=== PATIENT | female | born 1975 ===

== ENCOUNTER 2022-07-18 12:28 | Inpatient (IN) | payer OTHER ==
[~2022-07-18] VITALS: Ht 154.9 cm; Wt 78.0 kg
[2022-07-18] VITALS (17 sets, daily range): BP systolic 99–146; BP diastolic 58–86
--- NOTE | 2022-07-18 16:15 | NUR ---
ARRIVAL TO UNIT VIA EMS FROM [facility] PT. ALERT AND ORIENTED UPON ARRIVAL, PINK IN COLOR. KUSSMAUL RESPIRATIONS NOTED UPON ARRIVAL. PT. SPO2 100%, HR 130S, BP WNL. PT. ABLE TO SPEAK IN SHORT SENTENCES. DENIES PAIN AT THIS TIME. DENIES ANY N/V. ARRIVES ON NS AT 150ML/HR AND INSULIN GTT AT 6U/HR. BG CHECKED, INSULIN TITRATED DOWN TO 3U/HR AT THIS TIME, AWAITING ADDITIONAL FLUID ORDERS FROM PROVIDER. PT. HAS BILAT 20G IVS TO ACS. PT. HAS POLLARD THAT WAS PLACED AT [facility]. PT. C/O DISCOMFORT WITH POLLARD CATHETER, PLANS FOR REMOVAL ONCE ASSESSED BY PROVIDER. PT. ABLE TO UREÑA. MOTTLING NOTED TO KNEES AND HANDS. CALL TO PHYSICIAN FOR ORDERS.
--- NOTE | 2022-07-18 16:30 | NUR ---
[employer] SALES ENGINEER AT BEDSIDE TO ASSESS, ADDITIONAL ORDERS OBTAINED.
--- NOTE | 2022-07-18 17:00 | NUR ---
POLLARD CATHETER DCD AT THIS TIME. PER. HERRON RECREATIONAL THERAPY TECHNICIAN ORDERS D5 1/2 NS INTIATED.
--- NOTE | 2022-07-18 17:13 | NUR ---
PT ASSISTED UP TO BEDSIDE COMMODE TO VOID. TOLERATED WELL WITH STAND BY ASSIST.
[2022-07-18 17:34] LABS: Magnesium, Blood 2.1 mg/dL (1.6-2.4)
[2022-07-18 17:36] LABS: Bun/Creatinine Ratio 15.9 (12.0-20.0); Calcium, Blood 6.9 mg/dL (8.5-10.1); Creatinine, Blood 0.82 mg/dL (0.40-1.00); Potassium, Blood 4.5 mmol/L (3.5-5.5)
[2022-07-18 18:37] LABS: Base Excess Venous -24.8 mmol/L; Bicarbonate Venous 8.3 mmol/L (24.0-30.0); PCO2 Venous 21.9 mmHg (38-42); pH Blood Venous 7.04 (7.34-7.37)
--- NOTE | 2022-07-18 18:47 | NUR ---
SHIFT SUMMARY PT. REMAINS ALERT AND ORIENTED, REPORTS "FEELING MUCH BETTER" HOWEVER CONTINUES WITH TACHYPNEA AND TACHYCARDIA. PT. UP FREQUENTLY TO VOID SMALL AMOUNTS. PT CONTINUES ON INSULIN, TITRATED TO 5U/HR AND D5 1/2NS AT 200 ML/HR. PT. RESTING COMFORTABLY IN BED. CALL LIGHT IN REACH.
--- NOTE | 2022-07-18 20:55 | NUR ---
ASSUMED CARE PT IS A&O X4. RECEIVED PT FROM LUCY CANNON AROUND [id number]. NO C/O CP, SOB, OR NAUSEA. RR IN THE HIGH 20-30'S; SPO2 >92% ON RA; HR 90-100'S; MAP <65. NO C/O CP, SOB, OR NAUSEA. PT IS DROWSY, BUT ABLE TO HOLD CONVERSATION WITHOUT FALLING ASLEEP. PT IS CURRENTLY ON INSULIN GTT AND D5 1/2NS; LR BOLUS INFUSING AT THIS TIME PER ORDER. PUREWICK IN PLACE. WILL CONTINUE TO MONITOR.
[2022-07-18 21:43] LABS: Calcium, Blood 7.3 mg/dL (8.5-10.1); Creatinine, Blood 0.73 mg/dL (0.40-1.00); Potassium, Blood 4.2 mmol/L (3.5-5.5)
[2022-07-19] VITALS (21 sets, daily range): BP systolic 93–147; BP diastolic 57–95
[2022-07-19 01:46] LABS: Bun/Creatinine Ratio 12.1 (12.0-20.0); Calcium, Blood 6.7 mg/dL (8.5-10.1); Creatinine, Blood 0.74 mg/dL (0.40-1.00); Potassium, Blood 3.2 mmol/L (3.5-5.5)
[2022-07-19 05:17] LABS: BASOPHILS ABSOLUTE AUTO 0.02 K/mm3 (0.00-0.23); BASOPHILS PERCENT AUTO 0 % (0-2); EOSINOPHILS PERCENT AUTO 0 % (0-6); Hemoglobin 11.9 g/dL (11.5-16.0); IMMATURE GRAN ABSOLUTE AUTO 0.07 K/mm3 (0.00-0.10); IMMATURE GRAN PERCENT AUTO 1 % (0-1); LYMPHOCYTES PERCENT AUTO 8 % (21-46); MONOCYTES ABSOLUTE AUTO 0.74 K/mm3 (0.16-1.47); MONOCYTES PERCENT AUTO 6 % (4-13); Mean Corpuscular Volume 94 fL (80-100); Mean Platelet Volume 9.8 fL (9.1-12.4); NEUTROPHILS ABSOLUTE AUTO 10.02 K/mm3 (1.96-9.15); NEUTROPHILS PERCENT AUTO 85 % (41-73); Platelet Count 237 K/mm3 (150-400); RDW Coefficient Variation 11.6 % (11.7-14.2); Red Blood Cell Count 3.61 M/mm3 (3.80-5.20); White Blood Cell Count 11.85 K/mm3 (4.00-11.30)
[2022-07-19 05:47] LABS: Albumin, Blood 2.7 g/dL (3.4-5.0); Bilirubin, Total 0.4 mg/dL (0.1-1.0); Bun/Creatinine Ratio 10.4 (12.0-20.0); Creatinine, Blood 0.77 mg/dL (0.40-1.00); Globulin, Blood 2.7 g/dL (2.2-4.0); Magnesium, Blood 1.6 mg/dL (1.6-2.4); Potassium, Blood 3.3 mmol/L (3.5-5.5); Total Protein, Blood 5.4 g/dL (6.4-8.2)
--- NOTE | 2022-07-19 05:56 | NUR ---
SHIFT SUMMARY PT IS A&O X4. SPO2 >92% ON RA. RR HAS DECREASED SINCE INITIALLY ASSUMPTION OF CARE. PT STATES SHE "FEELS A LOT BETTER, BUT STILL PRETTY WIPED OUT". PT RESTED QUIETLY T/O NIGHT. NO C/O CP, SOB, OR NAUSEA. MAP <65. PUREWICK IN PLACE. FLUIDS RUNNING PER ORDER (SEE FLOWSHEET). NO OTHER EVENTS EXCEPT THOSE MENTIONED IN PREVIOUS NOTES.
--- NOTE | 2022-07-19 06:32 | NUR ---
UPDATE PT HAS REFUSED SIDE TO SIDE PILLOW TUCKING AND STATES SHE CAN REPOSITION SELF. STATES "I CAN WIGGLE A LTITLE BIT MYSELF".
--- NOTE | 2022-07-19 07:24 | NUR ---
Assumed care. Report received from magalys CANNON. Pt resting in bed, on RA. Pt alert and oriented. Insulin infusing at 2.5 units/hr, NS infusing at 200 ml/hr, NS TKO. No acute needs at time of report. VS stable. Continue to monitor.
[2022-07-19 09:48] LABS: Bun/Creatinine Ratio 10.2 (12.0-20.0); Calcium, Blood 6.8 mg/dL (8.5-10.1); Creatinine, Blood 0.69 mg/dL (0.40-1.00); Potassium, Blood 2.9 mmol/L (3.5-5.5)
[2022-07-19 14:30] LABS: Bun/Creatinine Ratio 8.2 (12.0-20.0); Calcium, Blood 7.1 mg/dL (8.5-10.1); Creatinine, Blood 0.73 mg/dL (0.40-1.00); Potassium, Blood 2.9 mmol/L (3.5-5.5)
[2022-07-19 18:38] LABS: Bun/Creatinine Ratio 7.3 (12.0-20.0); Creatinine, Blood 0.69 mg/dL (0.40-1.00); Potassium, Blood 5.7 mmol/L (3.5-5.5)
--- NOTE | 2022-07-19 20:03 | NUR ---
ASSUMED CARE PT IS A&O X4; SPO2 >92% ON RA; MAP <65; NSR. NO C/O CP, SOB, OR NAUSEA. PT IS CHOOSING TO EAT CRACKERS AND CHEESE INSTEAD OF HER MEAL D/T HER FEELING LIKE SHE MIGHT BECOME NAUSEOUS IF SHE EATS DINNER TRAY. INSULIN GTT DC'D AND PT STARTED ON SUBQ INSULIN PER ORDER. PT STATES SHE FEELS "BETTER, BUT STILL DROWSY". WILL CONTINUE TO MONITOR.
[2022-07-20] VITALS: BP 137/84
[2022-07-20 02:00] VITALS: BP 150/93
--- NOTE | 2022-07-20 03:06 | NUR ---
TRANSFER PT TRANSFERRED TO ROOM 337 W/ NO TELE PER DR. GUTIERREZ. NO ISSUES.
--- NOTE | 2022-07-20 04:25 | NUR ---
ADMISSION NOTE REPORT RECEIVED FROM GERMAINE MELENDEZ RN-ICU. PATIENT TRANSFERED TO FLOOR IN W/C, FROM WHICH SHE INDEPENDENTLY AMBULATED TO BED WITH A STEADY GAIT. A&OX4. PATIENT EFFECTIVELY COMMUNICATES NEEDS. NO ACUTE CONCERNS. PATIENT ORIENTED TO ROOM AND CALL LIGHT. BED LOW AND LOCKED. SKIN ASSESSMENT PERFORMED WITH SHELL MAGANA RN. NO ABNORMALITIES OBSERVED. PATIENT'S SKIN IS INTACT AND IN GOOD REPAIR.
--- NOTE | 2022-07-20 04:56 | NUR ---
BOILER FIREMAN SUMMARY NO ACUTE EVENTS THIS SHIFT. A&OX4. PATIENT EFFECTIVELY COMMUNICATES NEEDS. VSS. RR EVEN AND UNLABORED ON RA. NO REPORTS OF PAIN. PATIENT INDEPENDENT IN ROOM AND SHOWERED SHORTLY AFTER ARRIVAL TO FLOOR. BED LOW AND LOCKED. CALL LIGHT WITHIN REACH. THIS RN WILL CONTINUE TO MONITOR.
[2022-07-20 05:06] VITALS: BP 132/88
[2022-07-20 07:13] LABS: Albumin, Blood 2.7 g/dL (3.4-5.0); Anion Gap 11 mmol/L (6-16); Blood Urea Nitrogen 5 mg/dL (8-24); Bun/Creatinine Ratio 7.7 (12.0-20.0); CO2, Blood 15 mmol/L (21-32); Calcium, Blood 7.7 mg/dL (8.5-10.1); Chloride, Blood 114 mmol/L (98-108); Creatinine, Blood 0.65 mg/dL (0.40-1.00); Glomerular Filtration Rate 111 (60-); Glucose, Blood 287 mg/dL (70-99); Phosphorus, Blood 0.6 mg/dL (2.5-4.9); Potassium, Blood 3.3 mmol/L (3.5-5.5); Sodium, Blood 140 mmol/L (136-145)
[2022-07-20 07:43] LABS: BASOPHILS ABSOLUTE AUTO 0.02 K/mm3 (0.00-0.23); BASOPHILS PERCENT AUTO 0 % (0-2); EOSINOPHILS ABSOLUTE AUTO 0.04 K/mm3 (0.00-0.68); EOSINOPHILS PERCENT AUTO 1 % (0-6); Hematocrit 34.7 % (33.0-51.0); Hemoglobin 12.6 g/dL (11.5-16.0); IMMATURE GRAN ABSOLUTE AUTO 0.04 K/mm3 (0.00-0.10); IMMATURE GRAN PERCENT AUTO 1 % (0-1); LYMPHOCYTES ABSOLUTE AUTO 1.27 K/mm3 (0.84-5.20); LYMPHOCYTES PERCENT AUTO 18 % (21-46); MONOCYTES PERCENT AUTO 7 % (4-13); Mean Corpuscular HGB 33.2 pg (26.0-34.0); Mean Corpuscular HGB Conc 36.3 g/dL (31.5-36.5); Mean Corpuscular Volume 92 fL (80-100); NEUTROPHILS ABSOLUTE AUTO 5.24 K/mm3 (1.96-9.15); NEUTROPHILS PERCENT AUTO 74 % (41-73); RDW Standard Deviation 40.5 fL (35.1-46.3); Red Blood Cell Count 3.79 M/mm3 (3.80-5.20); White Blood Cell Count 7.11 K/mm3 (4.00-11.30)
[2022-07-20 07:47] VITALS: BP 147/87
[2022-07-20 13:34] LABS: Bun/Creatinine Ratio 6.8 (12.0-20.0); Calcium, Blood 8.1 mg/dL (8.5-10.1); Creatinine, Blood 0.59 mg/dL (0.40-1.00); Potassium, Blood 3.4 mmol/L (3.5-5.5)
[2022-07-20 16:01] VITALS: BP 134/98
--- NOTE | 2022-07-20 16:40 | NUR ---
PATIENT IS ALERT AND ORIENTED AND COOPERATIVE WITH CARE. INDEPENDENT IN THE ROOM. CORRECTING HYPOPHOSPHATEMIA CORRECTED WITH IVF PER ORDERS. NO COMPLAINTS BY PATIENT. ON RA. WILL CONTINUE TO MONITOR
[2022-07-20 19:44] VITALS: BP 137/93
[2022-07-21 04:36] VITALS: BP 143/94
[2022-07-21 06:03] LABS: Bun/Creatinine Ratio 3.7 (12.0-20.0); Calcium, Blood 8.2 mg/dL (8.5-10.1); Creatinine, Blood 0.54 mg/dL (0.40-1.00); Potassium, Blood 2.6 mmol/L (3.5-5.5)
--- NOTE | 2022-07-21 06:47 | NUR ---
Shift Summary [facility] labs showed a decrease in potassium from 3.4 to 2.6. ordered IV and PO potassium, awaiting IV potassium from pharmacy. No c/o of pain or nausea t/o the night.
[2022-07-21 07:31] VITALS: BP 147/101
[2022-07-21 07:53] LABS: Glucose, Blood 65 mg/dL (70-99)
[2022-07-21 07:56] LABS: Glucose, Blood 65 mg/dL (70-99)
[2022-07-21 09:09] LABS: Glucose, Blood 148 mg/dL (70-99)
[2022-07-21 13:59] LABS: Bun/Creatinine Ratio 7.4 (12.0-20.0); Calcium, Blood 8.1 mg/dL (8.5-10.1); Creatinine, Blood 0.54 mg/dL (0.40-1.00); Potassium, Blood 3.6 mmol/L (3.5-5.5)
[2022-07-21] MEDS ORDERED: SEMGLEE (Y100 UNIT/2 SC (15:05)
[2022-07-21] MEDS ORDERED: HUMALOG KW100 UNIT/1 SC (15:08)
[2022-07-21] MEDS ORDERED: EUTHYROX50 MCG PO (15:09)
--- NOTE | 2022-07-21 17:20 | NUR ---
DC 1535- PT LEFT THE FLOOR IN STABLE CONDITION WITH ALL BELONGINGS WITH HER SIGNIFICANT OTHER. RN DISCUSSED ALL DC INSTRUCTIONS AND PT GAVE VERBAL CONFIRMATION OF UNDERSTANDING.
== END 2022-07-21 15:39 | disposition home or self-care (01) | DRG 639 ==
LOC: ICUE 12:28 → MEDS 16:10 → ICUE 07-20 02:11 → MEDS 07-20 03:01
PROVIDERS: Family Medicine Adult Medicine; Hospitalist; Internal Medicine; Nurse Practitioner Acute Care; ADMIT Internal Medicine
DX: E10.10 Type 1 diabetes mellitus with ketoacidosis without coma (principal); E03.9 Hypothyroidism, unspecified; R06.89 Other abnormalities of breathing; E87.6 Hypokalemia; E83.39 Other disorders of phosphorus metabolism; D72.829 Elevated white blood cell count, unspecified; E83.51 Hypocalcemia; Z79.890 Hormone replacement therapy
CPT/HCPCS: 36415; 71045; 80048; 80053; 80069; 82330; 82803; 82947; 83036; 83605; 83735; 83880; 84100; 84443; 85025; A9270; C1751; J1650; J1815; J3475; J3480; J7040; J7042; J7050; J7060; J7120